=== PATIENT | male | born 1995 | race Caucasian/White ===

== ENCOUNTER 2018-08-15 22:27 | Emergency (ER) | payer OTHER ==
[~2018-08-15] VITALS: Ht 193 cm; Wt 113.4 kg
[2018-08-15] MEDS ORDERED: NS IV 1000 ML 1,000 ML ONE (23:02)
[2018-08-15 23:10] VITALS: BP 145/110
[2018-08-15] MEDS ORDERED: KETOROLAC 30 MG/ML VIAL ONE (23:25)
[2018-08-16] MEDS ORDERED: NS IV 1000 ML 1,000 ML ONE (00:30)
[2018-08-16] MEDS ORDERED: NS (IVPB) 100 ML ONE (00:50)
--- NOTE | 2018-08-16 01:15 | ED EENT ---
History of Present Illness General Stated Complaint: SORE THROAT;CAN'T SPEAK Source: patient, other Exam Limitations: no limitations History of Present Illness Date Seen by Provider: Aug 15, 2018 Time Seen by Provider: 23:00 Initial Comments Patient presents ER by private conveyance with his significant other and chief complaint that for the past 4 days shes had some sore throat, hoarseness pharyngitis chills no objective fever mild nausea but no vomiting diarrhea. He says he went to [facility] couple days ago and they told him was viral pharyngitis but if she is getting worse and he is afraid something else like mono. He is having no abdominal pain. He took some Tylenol yesterday and some DayQuil with mild improvement. Allergies and Home Medications Patient Home Medication List Home Medication List Reviewed: Yes Review of Systems Review of Systems Constitutional: chills; No diaphoresis; fever, malaise Eyes: Denies Blindness, Denies Blurred Vision Ears: Denies Dizziness, Denies Pain Nose: denies clots; congestion Mouth: denies clots, denies loose teeth Throat: pain, hoarse, painful swallowing Respiratory: No cough, No short of breath Cardiovascular: No chest pain, No edema Past Zrrsdyh-[id number]-[id number] Hx Patient Social History Alcohol Use: Occasionally Uses Alcohol Beverage of Choice: Whiskey Recreational Drug Use: No Smoking Status: Never a Smoker Recent Foreign Travel: No Contact w/Someone Who Travel: No Physical Exam Height, Weight, BMI Height: '" Weight: lbs. oz. kg; BMI Method: General Appearance: WD/WN, no apparent distress Eyes: bilateral eye normal inspection, bilateral eye PERRL, bilateral eye EOMI Ears: bilateral ear auricle normal, bilateral ear canal normal, bilateral ear TM normal Nose: normal inspection; No active bleeding, No discharge Mouth/Throat: tonsillar exudate, other (pharyngeal erythema) Neck: non-tender, full range of motion, supple, normal inspection, lymphadenopathy (R), lymphadenopathy (L) (and shotty anterior cervical bilateral ) Cardiovascular: normal peripheral pulses, no edema Respiratory: chest non-tender, lungs clear, normal breath sounds, no respiratory distress, no accessory muscle use Gastrointestinal: normal bowel sounds, non tender, soft Neurologic/Psychiatric: alert, normal mood/affect, oriented x 3 Skin: normal color, warm/dry Progress/Results/Core Measures Results/Orders My Orders Orders - MEGAN,YONATHAN J Ns Iv 1000 Ml (Sodium Chloride 0.9%) (08/15/18 23:02) Ketorolac Injection (Toradol Injection) (08/15/18 23:25) Ns Iv 1000 Ml (Sodium Chloride 0.9%) (08/16/18 00:30) Ns (Ivpb) (Sodium Chloride 0.9% Ivpb Bag (08/16/18 00:50) Progress Progress Note : Time: 01:13 Progress Note Negative strep, influenza, mono. Unremarkable white count. Most likely this is viral tonsillopharyngitis. The patient states that he has a high resting heart rate around 110-120 have baseline. 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 We have encouraged him to follow up with primary care and have this worked up outpatient as this does not seem satisfactory answer. Either way did not improve with 2 L of normal saline. Departure Impression Primary Impression: Tonsillopharyngitis Additional Impression: Tachycardia Disposition: 01 HOME, SELF-CARE Condition: Improved Departure-Patient Inst. Decision time for Depature: 01:14 Referrals: NO,LOCAL PHYSICIAN (PCP) Primary Care Physician Patient Instructions: Viral Pharyngitis (DC) Add. Discharge Instructions: Gargle salt water, throat sprays, humidifiers and vapor rubs. Use Tylenol 1000 mg every 8 hours in addition to ibuprofen 800 mg every 8 hours. Get some sleep and use hand sewer builder's, soap water and Lysol for surfaces. If you're not seeing improvement by day 7 and he should follow-up with your primary care provider for other ideas. Work/School Note: School/Childcare Release, Date Seen in the Emergency Department: Aug 16, 2018 Time Dismissed from Emergency Department: 01:16 Return to School: Aug 19, 2018 Restrictions: No Restrictions Work Release Form Date Seen in the Emergency Department: Aug 16, 2018 Return to Work: Aug 19, 2018 Restrictions: No Restrictions Copy Copies To 1: JED BLANCA MD, TITUS J Aug 16, 2018 01:15
[2018-08-16 01:19] LABS: BASOPHILS # (AUTO) 0.1 10^3/uL (0.0-0.1); BASOPHILS % (AUTO) 0 % (0-10); EOSINOPHILS # (AUTO) 0.2 10^3/uL (0.0-0.3); EOSINOPHILS % (AUTO) 2 % (0-10); HEMATOCRIT 44 % (40-54); HEMOGLOBIN 16.3 G/DL (13.3-17.7); LYMPHOCYTES # (AUTO) 2.2 X 10^3 (1.0-4.0); LYMPHOCYTES % (AUTO) 20 % (12-44); MEAN CORPUSCULAR HEMOGLOBIN 31 PG (25-34); MEAN CORPUSCULAR HGB CONC 37 G/DL (32-36); MEAN CORPUSCULAR VOLUME 82 FL (80-99); MEAN PLATELET VOLUME 10.5 FL (7.4-10.4); MONOCYTES # (AUTO) 1.1 X 10^3 (0.0-1.0); MONOCYTES % (AUTO) 9 % (0-12); NEUTROPHILS # (AUTO) 7.7 X 10^3 (1.8-7.8); NEUTROPHILS % (AUTO) 69 % (42-75); PLATELET COUNT 259 10^3/uL (130-400); RED BLOOD COUNT 5.33 10^6/uL (4.35-5.85); RED CELL DISTRIBUTION WIDTH 12.1 % (10.0-14.5); WHITE BLOOD COUNT 11.3 10^3/uL (4.3-11.0)
[2018-08-16 01:20] LABS: PROTHROMBIN TIME PATIENT 12.7 SEC (12.2-14.7)
[2018-08-16 01:22] LABS: ALANINE AMINOTRANSFERASE 27 U/L (0-55); ALBUMIN 4.9 GM/DL (3.2-4.5); ALKALINE PHOSPHATASE 44 U/L (40-136); BILIRUBIN,TOTAL 0.6 MG/DL (0.1-1.0); BUN/CREATININE RATIO 22; CALCIUM 10.5 MG/DL (8.5-10.1); CARBON DIOXIDE 21 MMOL/L (21-32); CHLORIDE 104 MMOL/L (98-107); CREATININE SERUM 1.17 MG/DL (0.60-1.30); GFR ESTIMATED > 60; GLUCOSE 102 MG/DL (70-105); POTASSIUM 3.7 MMOL/L (3.6-5.0); SODIUM 139 MMOL/L (135-145); TOTAL PROTEIN 8.6 GM/DL (6.4-8.2)
== END 2018-08-16 01:56 | disposition home or self-care (01) ==
LOC: ER 22:29
DX: J03.90 Acute tonsillitis, unspecified (principal); R00.0 Tachycardia, unspecified
CPT/HCPCS: 36415; 80053; 83605; 85025; 85610; 85730; 86308; 87040; 87430; 87804